=== PATIENT | female | born 1950 | race Caucasian/White ===

== ENCOUNTER → 2017-02-10 | Outpatient (CLI) | payer MEDICARE, BC ==
[~2017-02-10] MED LIST: ADVIL200 MG PO; ASPIRIN EC325 MG PO; DAILY VALUE1 EACH PO; DILAUDID2 MG PO; IRON325 M1 PO; LISINOPRIL10 MG PO; MEGARED OMEGA-1 EAC2 PO; SIMVASTATIN40 MG PO; SYNTHROID50 MCG PO; TUMS500 MG PO
== END | disposition home or self-care (01) ==
LOC: CDC 09:46
DX: R00.1 Bradycardia, unspecified (principal); I45.10 Unspecified right bundle-branch block; R94.31 Abnormal electrocardiogram [ECG] [EKG]; I10 Essential (primary) hypertension
CPT/HCPCS: 93000

== ENCOUNTER → 2017-05-18 | Outpatient (CLI) | payer MEDICARE, BC | END | disposition home or self-care (01) | LOC: CDC 08:24 | DX: I10 Essential (primary) hypertension (principal); R94.31 Abnormal electrocardiogram [ECG] [EKG] | CPT/HCPCS: 93000 ==